=== PATIENT | female | born 1990 | race Caucasian/White ===

== ENCOUNTER 2018-12-09 12:27 | Emergency (ER) | payer OTHER ==
[~2018-12-09] VITALS: Ht 162.6 cm; Wt 94.0 kg
[2018-12-09 12:31] VITALS: Ht 162.6 cm; Wt 94.0 kg
[2018-12-09] MEDS ORDERED: morphine 4 MG/ML VIAL IV STA (12:53)
[2018-12-09] MEDS ORDERED: ONDANSETRON 4 MG INJ IV STA (12:53)
[2018-12-09] MEDS ORDERED: SOD CHLORIDE 0.9% 1,000 ML IV STA (12:53)
[2018-12-09] MEDS ORDERED: SODIUM CHLORIDE 0.9% 1L BAG IV* STA (12:54)
[2018-12-09] MEDS ORDERED: LEVOFLOXACIN 750MG/D5W (PMX) 150 ML IVPB STA (12:54)
[2018-12-09] MEDS ORDERED: ACETAMINOPHEN 500 MG TAB PO STA (12:54)
[2018-12-09] MEDS ORDERED: SOD CHLORIDE 0.9% 100 ML ONE (13:42)
[2018-12-09] MEDS ORDERED: IOHEXOL 300MG/ML 150 ML BTL ONE (13:42)
--- NOTE | 2018-12-09 16:17 | ERD ---
ER Documentation Chief Complaint Chief Complaint AP WITH FEVER X 1 DAY HPI This is a 28-year-old female who is complaining of fever today with dysuria for 2 days. She has no nausea vomiting or diarrhea she has pain in the suprapubic region and she says it sore when she walks. No cough vaginal discharge she says her left leg feels sore to ROS All systems reviewed and are negative except as per history of present illness. PMhx/Soc History of Surgery: Yes (C SECTION) Anesthesia Reaction: No Hx Neurological Disorder: No Hx Respiratory Disorders: No Hx Cardiac Disorders: No Hx Psychiatric Problems: No Hx Miscellaneous Medical Probl: No Hx Alcohol Use: No Hx Substance Use: Yes (METH) Hx Tobacco Use: Yes Smoking Status: Current every day smoker FmHx Family History: No coronary disease Physical Exam Vitals Vital Signs Date Temp Pulse Resp B/P (MAP) Pulse Ox O2 O2 Flow FiO2 Time Delivery Rate 12/09/18 99.7 15:24 12/09/18 100.7 108 22 119/58 98 Room Air 14:36 (78) 12/09/18 101.0 13:22 12/09/18 101.1 119 18 124/74 98 12:31 (91) Physical Exam Const: Well-developed, well-nourished Head: Atraumatic, normocephalic Eyes: Normal Conjunctiva, PERRLA, EOMI, normal sclera, no nystagmus ENT: Normal External Ears, Nose and Mouth, moist mucus membranes. Neck: Full range of motion. No meningismus, no lymphadenopathy. Resp: Clear to auscultation bilaterally, no wheezing, rhonchi, rales Cardio: Regular rate and rhythm, no murmurs, S1 S2 present Abd: Soft, suprapubic tenderness mild non distended. Normal bowel sounds, no guarding or rebound, no pulsitile abdominal masses or bruits Skin: No petechiae or rashes, no ecchymosis , no maculopapular rash Back: L bilateral left more than right flank pain Ext: No cyanosis, or edema, FROM x 4, normal inspection, neurovascularly intact x 4 Neur: Awake and alert, STR 5/5 x 4, sensation intact x 4, no focal findings, cerebellum intact Psych: Normal Mood and Affect Result Diagram: 12/09/18 1240 12/09/18 1240 Results 24 hrs Laboratory Tests Test 12/09/18 12:25 12/09/18 12:40 12/09/18 12:54 12/09/18 12:59 Urine Color YELLOW Urine Clarity CLOUDY Urine pH 6.0 Urine Specific 1.015 [place] Urine Ketones NEGATIVE mg/dL Urine Nitrite POSITIVE mg/dL Urine Bilirubin NEGATIVE mg/dL Urine Urobilinogen NEGATIVE mg/dL Urine Leukocyte 3+ Curry/ul Esterase Urine Microscopic 84 /HPF RBC Urine Microscopic > 182 /HPF WBC Urine Squamous FEW /HPF Epithelial Cells Urine Bacteria FEW /HPF Urine Mucus MODERATE /HPF Urine Hemoglobin 1+ mg/dL Urine Glucose NEGATIVE mg/dL Urine Total Protein 2+ mg/dl White Blood Count 11.0 10^3/ul Red Blood Count 4.25 10^6/ul Hemoglobin 13.1 g/dl Hematocrit 40.3 % Mean Corpuscular 94.8 fl Volume Mean Corpuscular 30.8 pg Hemoglobin Mean Corpuscular 32.5 g/dl Hemoglobin Concent Red Cell 13.0 % Distribution Width Platelet Count 257 10^3/UL Mean Platelet 10.7 fl Volume Immature 0.300 % Granulocytes % Neutrophils % 78.1 % Lymphocytes % 14.1 % Monocytes % 6.9 % Eosinophils % 0.2 % Basophils % 0.4 % Nucleated Red Blood 0.0 /100WBC Cells % Immature 0.030 10^3/ul Granulocytes # Neutrophils # 8.6 10^3/ul Lymphocytes # 1.5 10^3/ul Monocytes # 0.8 10^3/ul Eosinophils # 0.0 10^3/ul Basophils # 0.0 10^3/ul Nucleated Red Blood 0.0 10^3/ul Cells # Sodium Level 141 mmol/L Potassium Level 3.9 mmol/L Chloride Level 101 mmol/L Carbon Dioxide 28 mmol/L Level Anion Gap 12 Blood Urea Nitrogen 13 mg/dl Creatinine 0.72 mg/dl Est Glomerular > 60 mL/min Filtrat Rate mL/min Glucose Level 173 mg/dl Calcium Level 9.1 mg/dl Total Bilirubin 0.5 mg/dl Direct Bilirubin 0.00 mg/dl Indirect Bilirubin 0.5 mg/dl Aspartate Amino 28 IU/L Transf (AST/SGOT) Alanine 44 IU/L Aminotransferase (A LT/SGPT) Alkaline 92 IU/L Phosphatase Total Protein 8.0 g/dl Albumin 4.1 g/dl Globulin 3.90 g/dl Albumin/Globulin 1.05 Ratio POC Venous Lactate 2.7 mmol/L POC Beta HCG, NEGATIVE Qualitative Test 12/09/18 14:56 12/09/18 15:40 Lactic Acid Level 1.4 mmol/L POC Venous Lactate 0.6 mmol/L Current Medications Medications Dose Sig/Mary Carmen Start Time Status Last (Trade) Ordered Route PRN Stop Time Admin Dose Reason Admin Sodium 1,000 ml @ Q1H STAT 12/09/18 DC 12/09/18 Chloride 1,000 mls/hr IV 12:53 12/09/18 13:20 13:52 Morphine 4 mg ONCE STAT 12/09/18 DC Sulfate IV 12:53 12/09/18 (morphine) 12:54 Ondansetron 4 mg ONCE STAT 12/09/18 DC 12/09/18 HCl (Zofran IV 12:53 12/09/18 13:23 Inj) 12:54 1,000 mg ONCE STAT 12/09/18 DC 12/09/18 Acetaminophen PO 12:54 12/09/18 13:22 (Tylenol 12:55 Tab) Sodium 2,820 ml BOLUS OVER 2 12/09/18 DC 12/09/18 Chloride HOURS STAT 12:54 12/09/18 13:21 (NS) IV* 12:56 150 ml @ ONCE STAT 12/09/18 DC 12/09/18 Levofloxacin/ 100 mls/hr IVPB 12:54 12/09/18 13:22 Dextrose 14:23 Iohexol 150 ml STK-MED 12/09/18 DC (Omnipaque ONCE .ROUTE 13:42 12/09/18 300mg/ ml) 13:43 Sodium 100 ml @ ud STK-MED 12/09/18 DC Chloride ONCE .ROUTE 13:42 12/09/18 13:43 Procedures/MDM [place] [id number] Radiology Main Line: [phone] DIAGNOSTIC IMAGING REPORT Patient: RAY OVALLE : 1990 Age: 28 Sex: F MR #: [id number] DOS: 12/09/18 1253 Ordering MD: SMITH CHOU DO Location: E/R Room/Bed: PROCEDURE: CT abdomen and pelvis with contrast. CLINICAL INDICATION: Fever. Right lower quadrant pain. TECHNIQUE: CT scan of the abdomen and pelvis without oral contrast was performed and is reconstructed at 2.5 mm contiguous axial intervals from the dome of the diaphragm to the inferior pubic rami.. The patient was scanned with intravenous contrast. Sagittal and coronal reformatted images were obtained from the axial source images. The calculated radiation dose measures 1234 mGy centimeters. The CTDI measures 21 mGy. Individualized dose optimization technique was used for the performance of this exam. This included 1. Automated exposure control. 2. Adjustment of the mA and / or kV according to the patient's size. 3. Use of iterative reconstructed technique. DICOM images are available. COMPARISON: None. FINDINGS: The lung bases are clear of any infiltrate or nodule. No effusion is seen. The liver is of normal size, contour and attenuation with no mass or ductal dilatation. No gallstones are visualized. No splenic, adrenal or pancreatic abnormalities present. Kidneys are of normal size and contour. There is mild heterogeneous enhancement of the left kidney with minimal perinephric stranding. There is enhancement of the nondilated pelvic mucosa and the wall of the ureter. Findings may represent evidence of left-sided pyelonephritis. No hydronephrosis, calculus or mass Is seen. Ureters are of normal course and caliber with no stone. Urinary bladder is empty. No stone is seen. There is questionable stranding of the fat surrounding a urachal sinus. No discrete collection is seen. . Uterus and ovaries appear normal. There is no aneurysm. No adenopathy is present. No bowel mass or obstruction is present. The appendix is normal. No phlegmon, ascites or pneumoperitoneum is visualized. The osseous structures are intact. IMPRESSION: No evidence of appendicitis, diverticulitis or urolithiasis. Mild heterogeneous enhancement left kidney with minimal stranding of surrounding fat and enhancement of the renal sinus and ureteral mucosa. Question pyelonephritis. Mild stranding fat surrounding urachal sinus. No discrete abscess. .Paulo Caceres MD, MD Date Time Electronically viewed and signed by .Paulo Caceres MDMD on 12/09/2018 14:46 .A/ CC: SMITH CHOU DO [id number] Patient had initial lactate of 2.6 now it is 0.8. Patient had IV fluids and antibiotics. Patient has some [place] however she is very well-appearing and has a dirty urine with mild elevation white blood count. I feel she stable for discharge home with oral anabolic therapy Departure Diagnosis: Primary Impression: Pyelonephritis Condition: Stable SMITH CHOU DO Dec 09, 2018 16:17
[2018-12-09] MEDS ORDERED: HYDR-3980 PO (16:18)
[2018-12-09] MEDS ORDERED: NITR-58 PO (16:18)
[2018-12-09] MEDS ORDERED: PHEN-538 PO (16:18)
[2018-12-09 16:33] VITALS: BP 108/60; PULSE 92; RESP 20
== END 2018-12-09 16:34 | disposition home or self-care (01) ==
LOC: E/R 12:27
DX: N12 Tubulo-interstitial nephritis, not specified as acute or chronic (principal); F17.210 Nicotine dependence, cigarettes, uncomplicated
CPT/HCPCS: 36415; 74177; 80053; 81001; 81025; 83605; 85025; 87040; 87086; 96374; 96375; J1956; J2405; J7030; Q9967; Z7502; Z7610; J2270